=== PATIENT | male | born 1965 | race Caucasian/White ===

== ENCOUNTER 2017-10-02 11:31 | Emergency (ER) | payer SELFPAY ==
[~2017-10-02] VITALS: Ht 170.2 cm; Wt 89.4 kg
[2017-10-02] MEDS ORDERED: DIPH,PERTUSS(ACELL),TET VAC/PF NC IM-VACC ONE (12:00)
[2017-10-02] MEDS ORDERED: CEFAZOLIN 1,000 MG ONE (12:43)
[2017-10-02] MEDS ORDERED: OXYcodone/APAP 5/325MG TABLET ONE (12:44)
[2017-10-02] MEDS ORDERED: DIPH,PERTUSS(ACELL),TET VAC/PF 0.5 ML IM-VACC ONE (12:44)
[2017-10-02] MEDS ORDERED: LIDOCAINE-MPF 2% ,5ML ONE (12:54)
[2017-10-02] MEDS ORDERED: CEFAZOLIN 1,000 MG IM ONE (13:00)
[2017-10-02] MEDS ORDERED: LIDOCAINE 2%, 10ML INFIL ONE (13:00)
[2017-10-02] MEDS ORDERED: OXYcodone/APAP 5/325MG TABLET PO ONE (13:00)
[2017-10-02 14:38] VITALS: BP 131/79
== END 2017-10-02 14:45 | disposition home or self-care (01) ==
LOC: ED 12:03
DX: S62.184A Nondisplaced fracture of trapezoid [smaller multangular], right wrist, initial encounter for closed fracture (principal); S62.014A Nondisplaced fracture of distal pole of navicular [scaphoid] bone of right wrist, initial encounter for closed fracture; S60.851A Superficial foreign body of right wrist, initial encounter; X58.XXXA Exposure to other specified factors, initial encounter; Y93.89 Activity, other specified; Y92.89 Other specified places as the place of occurrence of the external cause; Y99.8 Other external cause status
CPT/HCPCS: 29125; 73110; 73200; 90471; 90715; 96372; 99284; J0690; J3490